=== PATIENT | female | born 1995 | race African-American/Black ===

== ENCOUNTER 2018-06-02 02:21 | Emergency (ER) | payer SELFPAY ==
[~2018-06-02] VITALS: Ht 165.1 cm; Wt 99.8 kg
[2018-06-02 02:24] VITALS: BP_SYST 126
[2018-06-02] MEDS ORDERED: DIPH-TET-PERTUS Vaccine 0.5 ML VIAL (ADACEL) IM ONE (02:45)
[2018-06-02 02:57] VITALS: BP_SYST 125
== END 2018-06-02 02:57 | disposition home or self-care (01) ==
LOC: SED 02:21
DX: S61.011A Laceration without foreign body of right thumb without damage to nail, initial encounter (principal); W26.0XXA Contact with knife, initial encounter; Y93.89 Activity, other specified; Y92.89 Other specified places as the place of occurrence of the external cause; Y99.8 Other external cause status
CPT/HCPCS: 90715; 99283